=== PATIENT | female | born 1965 | race Two or more races ===

== ENCOUNTER 2019-02-04 19:54 | Emergency (ER) | payer BC ==
--- NOTE | 2019-02-04 22:54 | ER Document Report ---
ED Medical Screen (RME) - General Chief Complaint: Chest Pain Stated Complaint: CHEST PAIN Time Seen by Provider: 02/04/19 22:51 Mode of Arrival: Wheelchair Information source: Patient Notes: 53-year-old female presents to ED for complaint of severe left chest and upper abdomen pain. She states this is a fourth episode since October but noted that this lasted as long as this . She states while in the emergency room she vomited and now actually she feels better. Patient is alert oriented respirations regular and unlabored speaking in full sentences lungs are clear to auscultation she does have bowel sounds that are active. No tenderness noted at this time. Patient has a history of fibroid tumors hysterectomy appendectomy bilateral tubal ligation. She does not smoke drink or do any drugs. I have greeted and performed a rapid initial assessment of this patient. A comprehensive ED assessment and evaluation of the patient, analysis of test results and completion of medical decision making process will be conducted by an additional ED providers. TRAVEL OUTSIDE OF THE [place] IN LAST 30 DAYS: No - Related Data Allergies/Adverse Reactions: No Known Allergies Allergy (Unverified 02/04/19 22:51) Past Medical History - Social History Chew tobacco use (# tins/day): No Frequency of alcohol use: None Drug Abuse: None Pulmonary Medical History: Reports: Hx Asthma Renal/ Medical History: Denies: Hx Peritoneal Dialysis Past Surgical History: Reports: Hx Appendectomy, Hx Genitourinary Surgery, Hx Gynecologic Surgery - hysterectomy, Hx Tubal Ligation Physical Exam - Vital signs Vitals: Pulse Resp BP Pulse Ox 79 18 165/104 H 100 02/04/19 19:57 02/04/19 19:57 02/04/19 19:57 02/04/19 19:57 Course - Vital Signs Vital signs: Temp Pulse Resp BP Pulse Ox 79 18 165/104 H 100 02/04/19 19:57 02/04/19 19:57 02/04/19 19:57 02/04/19 19:57
--- NOTE | 2019-02-04 23:20 | RADIOLOGY REPORT (SQ) ---
XR CHEST 2 VIEWS HISTORY: Severe left chest and upper abdomen pain now relie. COMPARISON: None. FINDINGS: The heart size is normal. No consolidation, pleural effusion, or pneumothorax is seen. There are no acute bony findings. IMPRESSION: No evidence of acute cardiopulmonary disease.
[2019-02-04 23:24] LABS: ABSOLUTE LYMPHOCYTES (AUTO) 1.8 10^3/uL (0.5-4.7); ABSOLUTE MONOCYTES (AUTO) 0.5 10^3/uL (0.1-1.4); ABSOLUTE NEUT (AUTO) 6.4 10^3/uL (1.7-8.2); BASOPHILS % (AUTO) 0.2 % (0-2); EOSINOPHILS % (AUTO) 0.3 % (0-6); HEMATOCRIT 37.7 % (36.0-47.0); HEMOGLOBIN 13.2 g/dL (12.0-15.5); LYMPHOCYTES % (AUTO) 20.3 % (13-45); MEAN CORPUSCULAR HEMOGLOBIN 29.9 pg (27.0-33.4); MEAN CORPUSCULAR HGB CONC 35.1 g/dL (32.0-36.0); MEAN CORPUSCULAR VOLUME 85 fl (80-97); PLATELET COUNT 232 10^3/uL (150-450); RED BLOOD COUNT 4.41 10^6/uL (3.72-5.28); RED CELL DISTRIBUTION WIDTH 13.3 % (11.5-14.0); SEGMENTED NEUTROPHILS % (AUTO) 73.2 % (42-78); TOTAL CELLS COUNTED % (AUTO) 100 %; WHITE BLOOD COUNT 8.8 10^3/uL (4.0-10.5)
[2019-02-04 23:43] LABS: ALANINE AMINOTRANSFERASE 101 U/L (9-52); ALBUMIN 4.4 g/dL (3.5-5.0); ALKALINE PHOSPHATASE 107 U/L (38-126); ANION GAP 8 (5-19); ASPARTATE AMINO TRANSFERASE 168 U/L (14-36); BILIRUBIN,DIRECT 0.3 mg/dL (0.0-0.4); BILIRUBIN,TOTAL 0.4 mg/dL (0.2-1.3); BLOOD UREA NITROGEN 17 mg/dL (7-20); CARBON DIOXIDE 29 mmol/L (22-30); CHLORIDE 105 mmol/L (98-107); GLUCOSE 112 mg/dL (75-110); LIPASE 225.1 U/L (23-300); POTASSIUM 4.9 mmol/L (3.6-5.0); TOTAL PROTEIN 7.7 g/dL (6.3-8.2)
[2019-02-04 23:59] LABS: TROPONIN I < 0.012 ng/mL
--- NOTE | 2019-02-05 00:48 | ER Document Report ---
ED General - General Chief Complaint: Chest Pain Stated Complaint: CHEST PAIN Time Seen by Provider: 02/04/19 22:51 Mode of Arrival: Wheelchair Notes: Patient is a 53-year-old female without chronic medical problems who presents normal discomfort that "swells into my chest" and states that it becomes difficult for her to breathe during these episodes. She regards the pain as being a burning, throbbing, heavy discomfort. She states that she is intermittently had these symptoms on and off for several months but she had multiple episodes back to back today prompting her to come to the emergency department. She has not sought medical care regarding this issue previously to today. No obvious trigger for these episodes. They do resolve spontaneously. At the time of my assessment she denies any symptoms stating that she overall feels well. She denies any known history of coronary artery disease or cardiac events in the past. Has never had abdominal surgery. She denies any radiation of the pain into her arms, jaw or back. She had nausea and one episode of vomiting with the pain today. No shortness of breath. Regards her symptoms as being very severe when present, currently absent. TRAVEL OUTSIDE OF THE [place] IN LAST 30 DAYS: No - Related Data Allergies/Adverse Reactions: No Known Allergies Allergy (Unverified 02/04/19 22:51) Past Medical History - General Information source: Patient - Social History Smoking Status: Never Smoker Chew tobacco use (# tins/day): No Frequency of alcohol use: None Drug Abuse: None Lives with: Family Family History: Reviewed & Not Pertinent Patient has suicidal ideation: No Patient has homicidal ideation: No Pulmonary Medical History: Reports: Hx Asthma Renal/ Medical History: Denies: Hx Peritoneal Dialysis Past Surgical History: Reports: Hx Appendectomy, Hx Genitourinary Surgery, Hx Gynecologic Surgery - hysterectomy, Hx Tubal Ligation Review of Systems - Review of Systems Notes: Constitutional: Negative for fever. HENT: Negative for sore throat. Eyes: Negative for visual changes. Cardiovascular: Positive for chest discomfort Respiratory: Negative for shortness of breath. Gastrointestinal: Positive for upper abdominal pain, vomiting Genitourinary: Negative for dysuria. Musculoskeletal: Negative for back pain. Skin: Negative for rash. Neurological: Negative for headaches, weakness or numbness. 10 point ROS negative except as marked above and in HPI. Physical Exam - Vital signs Vitals: Pulse Resp BP Pulse Ox 79 18 165/104 H 100 02/04/19 19:57 02/04/19 19:57 02/04/19 19:57 02/04/19 19:57 Interpretation: Hypertensive Notes: PHYSICAL EXAMINATION: GENERAL: Well-appearing, well-nourished and in no acute distress. HEAD: Atraumatic, normocephalic. EYES: Pupils equal round and reactive to light, extraocular movements intact, sclera anicteric, conjunctiva are normal. ENT: nares patent, oropharynx clear without exudates. Moist mucous membranes. NECK: Normal range of motion, supple without lymphadenopathy LUNGS: Breath sounds clear to auscultation bilaterally and equal. No wheezes rales or rhonchi. HEART: Regular rate and rhythm without murmurs ABDOMEN: Soft, nontender, normoactive bowel sounds. No guarding, no rebound. No masses appreciated. EXTREMITIES: Normal range of motion, no pitting or edema. No cyanosis. NEUROLOGICAL: No focal neurological deficits. Moves all extremities sponta neously and on command. PSYCH: Normal mood, normal affect. SKIN: Warm, Dry, normal turgor, no rashes or lesions noted. Course - Re-evaluation Re-evalutation: 02/05/19 00:47 Patient presents with episodes of epigastric abdominal pain radiating up into her chest to make to feel she cannot breathe or get air. Her symptoms have res olved at the time of my assessment she currently denies any symptoms of any kind. She has no abdominal tenderness, rebound or guarding. Denies any current chest pain. EKG without ischemic changes. Chest x-ray is clear. First troponin is negative, repeat will be obtained 3 hours after initial. Heart score is currently 2. She has no known cardiac history. Denies any medical problems of any kind. Right upper quadrant ultrasound will also be obtained to evaluate for possible gallbladder pathology. Suspect that it sounds most consistent with gastritis with associated reflux and spasming of the esophagus however these more concerning etiologies will be first excluded 02/05/19 03:25 Right upper quadrant ultrasound with small cholelithiasis without any evidence of cholecystitis. Repeat troponin remains normal. The patient continues to appear very well. Patient has continued to be asymptomatic. Suspect likely esophageal spasming in the context of gastritis or duodenitis. At this time will discharge with return precautions and follow-up recommendations. Verbal discharge instructions given a the bedside and opportunity for questions given. Medication warnings reviewed. Patient is in agreement with this plan and has verbalized understanding of return precautions and the need for primary care follow-up in the next 24-72 hours. - Vital Signs Vital signs: Temp Pulse Resp BP Pulse Ox 79 18 142/99 H 99 02/04/19 19:57 02/05/19 03:11 02/05/19 03:11 02/05/19 03:11 - Laboratory Result Diagrams: 02/04/19 23:08 02/04/19 23:08 Laboratory results interpreted by me: 02/04/19 23:08 Glucose 112 H AST 168 H ALT 101 H - Diagnostic Test Radiology reviewed: Image reviewed, Reports reviewed Radiology results interpreted by me: 02/05/19 00:48 Chest x-ray: No acute infiltrate or pneumothorax - EKG Interpretation by Me Additional EKG results interpreted by me: 02/05/19 00:48 Sinus rhythm, rate 66. No ST elevations or depressions. QTC is 466 Discharge - Discharge Clinical Impression: Upper abdominal pain, Chest discomfort Nausea and vomiting Qualifiers: Vomiting type: unspecified Vomiting Intractability: non-intractable Qualified Code(s): R11.2 - Nausea with vomiting, unspecified Condition: Good Disposition: HOME, SELF-CARE Additional Instructions: Your symptoms appear to be most consistent with stomach or upper intestinal irritation. The remainder of your blood work, ultrasound and chest x-ray do not account for your pain. I would however encourage you to follow-up with your primary care doctor for consideration of a stress test within the next 24-48 hours please begin taking famotidine 40 mg in the morning and 40 mg at night. Take Carafate prior to meals. You may also take medicine such as Pepto-Bismol or Tums to assist with your pain. Please return to emergency department immediately if you have worsening of your pain, shortness of breath, vomiting, become unable to exert yourself due to pain or difficulty breathing, you pass out, or have any pain that radiates into your arms, jaw, or back. Please also return if you have any additional symptoms that are concerning to you. As we have discussed, the most important thing is lifestyle changes. You need to avoid smoking, sodas, tea, coffee, alcohol, spicy foods, and acidic foods such as citrus fruits, tomato based products, berries, and most fruit juices. Prescriptions: Famotidine 40 mg PO BID #60 tablet Sucralfate [Carafate 1 gm Tablet] 1 gm PO ACHS #120 tablet
[2019-02-05 03:12] VITALS: BP 142/99
--- NOTE | 2019-02-05 03:17 | RADIOLOGY REPORT (SQ) ---
EXAM DESCRIPTION: US ABDOMEN LIMITED COMPLETED DATE/TME: 02/05/2019 00:33 CLINICAL HISTORY: 53 years, Female, upper ab pain, n/v COMPARISON: None. TECHNIQUE: Grayscale and Doppler images of the abdomen were obtained. LIMITATIONS: None. FINDINGS: The visualized portions of the pancreas, IVC, and aorta appear unremarkable. The liver demonstrates increased echotexture. There are no focal masses. The liver measures 15.5 cm in size. Small stones are noted within the gallbladder. There is no evidence of wall thickening or pericholecystic fluid. No sonographic Ohara sign was elicited. The common bile duct is normal in caliber measuring up to 2 mm in diameter. The right kidney measures 10.3 x 5.0 x 5.5 cm. No hydronephrosis. IMPRESSION: Cholelithiasis without evidence of acute cholecystitis. Fatty liver. copyright 2010 [employer]- All Rights Reserved
[2019-02-05] MEDS ORDERED: METOCLOPRAMIDE HCL ORAL SOLN 10 MG/10 ML UDCUP PO ONE (03:27)
[2019-02-05] MEDS ORDERED: SUCRALFATE 1 GM TABLET PO ONE (03:27)
[2019-02-05] MEDS ORDERED: MAG HYDROX/AL HYDROX/SIMETH SUSP 30 ML UDCUP PO ONE (03:27)
[2019-02-05] MEDS ORDERED: FAMOTIDINE 20 MG TABLET PO ONE (03:27)
[2019-02-05] MEDS ORDERED: LIDOCAINE 2% VISCOUS SOLN 20 ML UDCUP PO ONE (03:27)
--- NOTE | 2019-02-05 07:53 | EKG REPORT ---
SEVERITY:- ABNORMAL ECG - SINUS RHYTHM NONSPECIFIC INTRAVENTRICULAR CONDUCTION DELAY : Confirmed by: Antonino Oliver MD 05-Feb-2019 07:53:09
== END 2019-02-05 03:40 | disposition home or self-care (01) ==
LOC: ER 19:54
DX: K80.20 Calculus of gallbladder without cholecystitis without obstruction (principal); R10.13 Epigastric pain; R07.9 Chest pain, unspecified; R11.2 Nausea with vomiting, unspecified; J45.909 Unspecified asthma, uncomplicated; Z90.49 Acquired absence of other specified parts of digestive tract
CPT/HCPCS: 93005; 99284; 36415; 82553; 83690; 85025; 80053; 84484; 71046; 76705; 93010; J3490